=== PATIENT | female | born 1970 | race Caucasian/White ===

== ENCOUNTER 2020-02-01 14:12 | Emergency (ER) | payer SELFPAY ==
--- NOTE | 2020-02-01 14:43 | EDM.PDOC ---
ED HPI GENERAL MEDICAL PROBLEM - General Chief Complaint: Abdominal Pain Stated Complaint: stomach pain Time Seen by Provider: 02/01/20 14:28 Source of Information: Reports: Patient History Limitations: Reports: No Limitations - History of Present Illness INITIAL COMMENTS - FREE TEXT/NARRATIVE: Mily comes into [facility] ED with abdominal pain in the LLQ last night that has persisted today. Pain is deep, persistent, and nonradiating. There has been no fever, chills, sweats, nausea, vomiting, or diarrhea. Her last formed stool was this am. There are no voiding sxs. She is traveling from [place]. Her general health is good, and she is med compliant. Her last colonoscopy did not reveal any reportable defects. left lower quadrant/abdomen Pain Score (Numeric/FACES): 7 - Related Data Allergies Allergy/AdvReac Type Severity Reaction Status Date / Time cefaclor [From Ceclor] Allergy Difficulty Verified 02/01/20 15:00 Breathing clindamycin Allergy Hives Verified 02/01/20 15:00 Penicillins Allergy Difficulty Verified 02/01/20 15:00 Breathing Home Meds: Home Meds . [Unable to Verify Home Med List] 02/01/20 [History] Past Medical History Cardiovascular History: Reports: Hypertension Psychiatric History: Reports: Anxiety, Depression Oncologic (Cancer) History: Reports: Breast, Cervix Other Oncologic History: breast cancer 2004 and 2005. cervical cancer 2009 and 2012 - Past Surgical History Female Surgical History: Reports: Mastectomy, Other (See Below) Other Female Surgeries/Procedures: bilateral Social & Family History - Family History Family Medical History: Noncontributory - Tobacco Use Smoking Status *Q: Former Smoker Used Tobacco, but Quit: Yes Month/Year Tobacco Last Used: 1995 Second Hand Smoke Exposure: No - Caffeine Use Caffeine Use: Reports: Coffee, Soda - Recreational Drug Use Recreational Drug Use: No ED ROS GENERAL - Review of Systems Review Of Systems: See Below Constitutional: Reports: No Symptoms HEENT: Reports: No Symptoms Respiratory: Reports: No Symptoms Cardiovascular: Reports: No Symptoms Endocrine: Reports: No Symptoms GI/Abdominal: Reports: Abdominal Pain, Decreased Appetite : Reports: No Symptoms Musculoskeletal: Reports: No Symptoms Skin: Reports: No Symptoms Neurological: Reports: No Symptoms Psychiatric: Reports: No Symptoms Hematologic/Lymphatic: Reports: No Symptoms Immunologic: Reports: No Symptoms ED EXAM, GI/ABD - Physical Exam Exam: See Below Exam Limited By: No Limitations General Appearance: Alert, WD/WN, No Apparent Distress Eyes: Bilateral: Normal Appearance, EOMI Ears: Normal External Exam Nose: Normal Inspection Throat/Mouth: Normal Inspection, Normal Oropharynx Head: Normocephalic Neck: Normal Inspection, Supple Respiratory/Chest: Lungs Clear Cardiovascular: Regular Rate, Rhythm, No Murmur GI/Abdominal Exam: Normal Bowel Sounds, Soft, No Organomegaly, No Distention, Tender (LLQ) (Female) Exam: Deferred Rectal (Female) Exam: Deferred Extremities: Normal Inspection Neurological: Alert, Oriented, CN II-XII Intact, Normal Cognition, No Motor/Sensory Deficits Skin Exam: Warm, Dry, Intact, Normal Color, No Rash Lymphatic: No Adenopathy Course - Vital Signs Text/Narrative:: Following assessment, I obtained some screening labs including CBC, CMP, CRP, Lactic a, and UA, all baseline. A subsequent Abd Pelvic CT w Contrast noted a small central hernia (?age) and a 4.8 cm L ovarian cyst. I suggested a visit with an special education secretary surgeon her at [facility] or a visit to the ED for a consult with a Ict Business Analyst, and patient defers to address issues at home. She ws advised to call or return to the ED is sxs escalate. Last Recorded V/S: Last Vital Signs Temp 36.7 C 02/01/20 14:20 Pulse 114 H 02/01/20 14:20 Resp 17 02/01/20 14:20 BP 178/92 H 02/01/20 15:06 Pulse Ox 97 02/01/20 14:20 - Orders/Labs/Meds Orders: Active Orders 24 hr Category Date Time Status Abdomen Pelvis w Cont [CT] Stat Exams 02/01/20 15:55 Taken Labs: Laboratory Tests 02/01/20 02/01/20 02/01/20 Range/Units 14:45 14:45 14:45 WBC 5.5 (4.5-12.0) X10-3/uL RBC 3.97 (3.23-5.20) x10(6)uL Hgb 12.0 (11.5-15.5) g/dL Hct 36.9 (30.0-51.3) % MCV 93.0 (80-96) fL MCH 30.2 (27.7-33.6) pg MCHC 32.5 (32.2-35.4) g/dL RDW 12.9 (11.5-15.5) % Plt Count 233 (125-369) X10(3)uL MPV 8.5 (7.4-10.4) fL Neut % (Auto) 60.5 (46-82) % Lymph % (Auto) 28.4 (13-37) % [place] % (Auto) 5.8 (4-12) % Eos % (Auto) 4 (1.0-5.0) % Baso % (Auto) 1 (0-2) % Neut # (Auto) 3.3 (1.6-8.3) # Lymph # (Auto) 1.6 (0.6-5.0) # [place] # (Auto) 0.3 (0.0-1.3) # Eos # (Auto) 0.2 (0.0-0.8) # Baso # (Auto) 0.1 (0.0-0.2) # Sodium 145 (135-145) mmol/L Potassium 3.6 (3.5-5.3) mmol/L Chloride 107 (100-110) mmol/L Carbon Dioxide 29 (21-32) mmol/L BUN 14 (7-18) mg/dL Creatinine 1.1 H (0.55-1.02) mg/dL Est Cr Clr Drug Dosing 52.25 mL/min Estimated GFR (MDRD) 52 L (>60) BUN/Creatinine Ratio 12.7 (9-20) Glucose 63 L (80-116) mg/dL Lactic Acid 1.0 (0.4-2.0) mmol/L Calcium 10.1 (8.6-10.2) mg/dL Total Bilirubin 0.5 (0.1-1.3) mg/dL AST 27 H (5-25) IU/L ALT 22 (12-36) U/L Alkaline Phosphatase 87 (56-112) IU/L C-Reactive Protein (0.5-0.9) mg/dL Total Protein 6.3 (6.0-8.0) g/dL Albumin 3.4 L (3.5-5.2) g/dL Globulin 2.9 g/dL Albumin/Globulin Ratio 1.2 Urine Color (YELLOW) Urine Appearance (CLEAR) Urine pH (5.0-6.5) Ur Specific [place] (1.010-1.025) Urine Protein (NEGATIVE) mg/dL Urine Glucose (UA) (NORMAL) mg/dL Urine Ketones (NEGATIVE) mg/dL Urine Occult Blood (NEGATIVE) Urine Nitrite (NEGATIVE) Urine Bilirubin (NEGATIVE) Urine Urobilinogen (NEGATIVE) mg/dL Ur Leukocyte Esterase (NEGATIVE) Urine RBC (0-5) Urine WBC (0-5) Ur Squamous Epith Cells (NS,R,O) Urine Bacteria (NS) 02/01/20 02/01/20 Range/Units 14:45 15:05 WBC (4.5-12.0) X10-3/uL RBC (3.23-5.20) x10(6)uL Hgb (11.5-15.5) g/dL Hct (30.0-51.3) % MCV (80-96) fL MCH (27.7-33.6) pg MCHC (32.2-35.4) g/dL RDW (11.5-15.5) % Plt Count (125-369) X10(3)uL MPV (7.4-10.4) fL Neut % (Auto) (46-82) % Lymph % (Auto) (13-37) % [place] % (Auto) (4-12) % Eos % (Auto) (1.0-5.0) % Baso % (Auto) (0-2) % Neut # (Auto) (1.6-8.3) # Lymph # (Auto) (0.6-5.0) # [place] # (Auto) (0.0-1.3) # Eos # (Auto) (0.0-0.8) # Baso # (Auto) (0.0-0.2) # Sodium (135-145) mmol/L Potassium (3.5-5.3) mmol/L Chloride (100-110) mmol/L Carbon Dioxide (21-32) mmol/L BUN (7-18) mg/dL Creatinine (0.55-1.02) mg/dL Est Cr Clr Drug Dosing mL/min Estimated GFR (MDRD) (>60) BUN/Creatinine Ratio (9-20) Glucose (80-116) mg/dL Lactic Acid (0.4-2.0) mmol/L Calcium (8.6-10.2) mg/dL Total Bilirubin (0.1-1.3) mg/dL AST (5-25) IU/L ALT (12-36) U/L Alkaline Phosphatase (56-112) IU/L C-Reactive Protein 0.2 L (0.5-0.9) mg/dL Total Protein (6.0-8.0) g/dL Albumin (3.5-5.2) g/dL Globulin g/dL Albumin/Globulin Ratio Urine Color Yellow (YELLOW) Urine Appearance Clear (CLEAR) Urine pH 7.0 H (5.0-6.5) Ur Specific [place] 1.005 L (1.010-1.025) Urine Protein Trace (NEGATIVE) mg/dL Urine Glucose (UA) Normal (NORMAL) mg/dL Urine Ketones 15 H (NEGATIVE) mg/dL Urine Occult Blood Negative (NEGATIVE) Urine Nitrite Negative (NEGATIVE) Urine Bilirubin Negative (NEGATIVE) Urine Urobilinogen Normal (NEGATIVE) mg/dL Ur Leukocyte Esterase Moderate H (NEGATIVE) Urine RBC 0-5 (0-5) Urine WBC 5-10 H (0-5) Ur Squamous Epith Cells Occasional (NS,R,O) Urine Bacteria Few H (NS) Meds: Medications Discontinued Medications Generic Name Dose Route Start Last Admin Trade Name Freq PRN Reason Stop Dose Admin Diatrizoate Meglum/Diatrizoate Sod 30 ml 02/01/20 16:24 02/01/20 18:11 Gastrografin 37% PO 02/01/20 16:25 30 ml . DIRECTED ONE Administration Iopamidol 100 ml 02/01/20 16:24 02/01/20 18:11 Isovue-370 (76%) IV 02/01/20 16:25 100 ml . DIRECTED ONE Administration Ketorolac Tromethamine 30 mg 02/01/20 18:14 02/01/20 18:20 Toradol IVPUSH 02/01/20 18:15 30 mg ONETIME ONE Administration Departure - Departure Time of Disposition: 18:52 Disposition: Home, Self-Care 01 Condition: Fair Clinical Impression: Abdominal pain Qualifiers: Abdominal location: left lower quadrant Qualified Code(s): R10.32 - Left lower quadrant pain Ovarian cyst Qualifiers: Laterality: left Qualified Code(s): N83.202 - Unspecified ovarian cyst, left side - Discharge Information *PRESCRIPTION DRUG MONITORING PROGRAM REVIEWED*: Not Applicable *COPY OF PRESCRIPTION DRUG MONITORING REPORT IN PATIENT BABS: Not Applicable Forms: ED Department Discharge Sepsis Event Note (ED) - Evaluation Sepsis Screening Result: No Definite Risk - Focused Exam Vital Signs: Vital Signs Temp Pulse Resp BP Pulse Ox 02/01/20 15:06 178/92 H 02/01/20 14:20 36.7 C 114 H 17 196/98 H 97 - Problem List & Annotations (1) Abdominal pain SNOMED Code(s): 00143914 Code(s): R10.9 - UNSPECIFIED ABDOMINAL PAIN Status: Acute Current Visit: Yes Annotation/Comment:: I advised opportunity for consult with Genl Surgeon or Ict Business Analyst this pm, and patient defers to address issues at home. She may eat, and take NSAIDs for pain if needed. Qualifiers: Abdominal location: left lower quadrant Qualified Code(s): R10.32 - Left lower quadrant pain (2) Ovarian cyst SNOMED Code(s): 28516395 Code(s): N83.209 - UNSPECIFIED OVARIAN CYST, UNSPECIFIED SIDE Status: Acute Current Visit: Yes Annotation/Comment:: Advised follow up with Genl Surgery or Gynecology to address finding. Qualifiers: Laterality: left Qualified Code(s): N83.202 - Unspecified ovarian cyst, left side - Problem List Review Problem List Initiated/Reviewed/Updated: Yes - My Orders Last 24 Hours: My Active Orders 02/01/20 15:55 Abdomen Pelvis w Cont [CT] Stat - Assessment/Plan Last 24 Hours: My Active Orders 02/01/20 15:55 Abdomen Pelvis w Cont [CT] Stat Plan: Follow up recommended.
[2020-02-01] MEDS: Diatrizoate Meglumine/Diatrizoate Sodium 37% 30 ML Bottle PO ONE (18:11)
[2020-02-01] MEDS: Iopamidol 755 Mg/ML 100 ML Bottle IV ONE (18:11)
[2020-02-01] MEDS: Ketorolac 30 MG/ML SDV IVPUSH ONE (18:20)
--- NOTE | 2020-02-01 18:56 | CT ---
INDICATION: Left lower quadrant pain since last night. CT ABDOMEN AND PELVIS WITH CONTRAST: Spiral 3.75 mm axial sections were obtained through the abdomen with oral and IV contrast (100 mL Isovue-370 at 1.5 mL/second) with sagittal and coronal reconstructions 02/01/20 - no comparisons. Total exam DLP was 1264.97 mGy-cm. Some linear changes at the right lower lobe likely are fibrotic in nature. The gallbladder is absent compatible with history of its removal. Common bile duct is dilated but is compatible with a cholecystectomy. The liver appeared normal. The adrenal glands, spleen, pancreas appear normal. Fat stranding is noted with some irregularities of the renal cortices compatible with renal cortical scarring of mild degree. A tiny low density lesion in the upper pole of the right kidney likely is a simple cyst. No obstructive uropathy is suggested. A hernia including only fat is noted ventrally at the level of the upper pelvis to the left of midline of moderate size. No specific gastric abnormality was identified. The appendix is absent with history of its removal. No evidence of free air or bowel obstruction was seen. Calcifications are noted in the abdominal aorta, splenic, celiac axis, superior mesenteric artery, iliac, and femoral arteries as well as uterine arteries. No definite retroperitoneal mass was identified. Retroperitoneal lymphadenopathy is minimal and nonspecific. The uterus appeared grossly normal. At the left ovary, there is a low density mass which appears well circumscribed and measures in the axial projection 30 x 34 mm, coronally 33 x 43 mm, and 48 mm in the sagittal projection. This is compatible with an ovarian cystic mass, etiology indeterminate in this postmenopausal patient. A neoplastic process would be a consideration. No other findings to strongly suggest an etiology for the patient's left lower quadrant pain was identified - correlate clinically. Urinary bladder appeared unremarkable. IMPRESSION: 1. Cystic-appearing mass at the left ovary, etiology indeterminate. Neoplasia cannot be excluded although it appears well circumscribed. It measured a maximum of 48 mm. 2. ASD. 3. Ventral hernia including only fat. 4. Renal cortical scarring and minimal probable cystic change right kidney. 5. Post-appendectomy. 6. Post-cholecystectomy. 7. Minimal linear density at the right lower lobe may be atelectatic and/or fibrotic. Report was called to Dr. Balderas at 1831 hours. [facility]
[2020-02-01] MEDS: amLODIPine 10 MG Tab PO STA (19:11)
[2020-02-01] MEDS: cloNIDine 0.1 MG Tab PO ONE (19:12)
== END 2020-02-01 19:25 | disposition home or self-care (01) ==
LOC: FB.ED 14:12
DX: N83.202 Unspecified ovarian cyst, left side (principal); I10 Essential (primary) hypertension; Z88.0 Allergy status to penicillin; Z88.1 Allergy status to other antibiotic agents; Z87.891 Personal history of nicotine dependence
CPT/HCPCS: 36415; 74177; 80053; 81001; 83605; 85025; 86140; 96374; 99284; 99284-25; A9270-GY; J1885; Q9963; Q9967